=== PATIENT | male | born 1935 | race Caucasian/White ===

== ENCOUNTER → 2016-05-27 | Outpatient (CLI) | payer MEDICARE, BC ==
[~2016-05-27] MED LIST: ASPIRIN E.C. 8181 MG PO; AVAPRO300 M1 PO; GLUCOPHAGE500 MG/TAB PO; OMEGA 31000 MG PO; PRIL40 PO; ULTRAM 50MG TAB50 MG PO; ZOCOR 40MG40 MG PO
== END ==
LOC: SUN.DIA 14:30
DX: E11.65 Type 2 diabetes mellitus with hyperglycemia (principal); E66.9 Obesity, unspecified; Z68.39 Body mass index [BMI] 39.0-39.9, adult; Z79.84 Long term (current) use of oral hypoglycemic drugs; Z71.3 Dietary counseling and surveillance; E78.5 Hyperlipidemia, unspecified; I10 Essential (primary) hypertension; Z87.891 Personal history of nicotine dependence

== ENCOUNTER → 2016-11-11 | Outpatient (CLI) | payer MEDICARE, BC | LOC: SUN.DIA 14:23 | DX: E11.9 Type 2 diabetes mellitus without complications (principal); E78.5 Hyperlipidemia, unspecified; I10 Essential (primary) hypertension; E66.9 Obesity, unspecified; Z71.3 Dietary counseling and surveillance; Z87.891 Personal history of nicotine dependence | CPT/HCPCS: G0108 ==

== ENCOUNTER → 2017-06-12 | Outpatient (CLI) | payer MEDICARE, BC | LOC: SUN.DIA 05-26 15:51 | DX: E11.9 Type 2 diabetes mellitus without complications (principal); E78.5 Hyperlipidemia, unspecified; I10 Essential (primary) hypertension; E66.9 Obesity, unspecified; Z68.41 Body mass index [BMI] 40.0-44.9, adult; Z71.3 Dietary counseling and surveillance; Z87.891 Personal history of nicotine dependence | CPT/HCPCS: G0108 ==

== ENCOUNTER → 2017-11-10 | Outpatient (CLI) | payer MEDICARE, BC | LOC: SUN.DIA 09:35 | DX: E11.9 Type 2 diabetes mellitus without complications (principal); E78.5 Hyperlipidemia, unspecified; I10 Essential (primary) hypertension; E66.9 Obesity, unspecified; Z68.41 Body mass index [BMI] 40.0-44.9, adult; Z71.3 Dietary counseling and surveillance; Z87.891 Personal history of nicotine dependence | CPT/HCPCS: G0108 ==

== ENCOUNTER → 2018-05-18 | Outpatient (CLI) | payer MEDICARE, BC | LOC: SUN.DIA 10:37 | DX: E11.9 Type 2 diabetes mellitus without complications (principal); E78.5 Hyperlipidemia, unspecified; I10 Essential (primary) hypertension; E66.9 Obesity, unspecified; F17.210 Nicotine dependence, cigarettes, uncomplicated | CPT/HCPCS: G0108 ==

== ENCOUNTER → 2018-11-16 | Outpatient (CLI) | payer MEDICARE, BC | LOC: DIA.ED 13:39 | DX: E11.9 Type 2 diabetes mellitus without complications (principal); E78.5 Hyperlipidemia, unspecified; I10 Essential (primary) hypertension; E66.9 Obesity, unspecified | CPT/HCPCS: G0108 ==

== ENCOUNTER → 2019-06-02 | Outpatient (CLI) | payer MEDICARE, BC | LOC: DIA.ED 14:27 | DX: E11.9 Type 2 diabetes mellitus without complications (principal); Z79.84 Long term (current) use of oral hypoglycemic drugs; E66.8 Other obesity; E78.5 Hyperlipidemia, unspecified; I10 Essential (primary) hypertension | CPT/HCPCS: G0270 ==

== ENCOUNTER → 2019-10-27 | Outpatient (CLI) | payer MEDICARE, BC | LOC: DIA.ED 13:55 | DX: E11.9 Type 2 diabetes mellitus without complications (principal); Z79.84 Long term (current) use of oral hypoglycemic drugs; E66.8 Other obesity; E78.5 Hyperlipidemia, unspecified; I10 Essential (primary) hypertension | CPT/HCPCS: G0270 ==

== ENCOUNTER → 2019-12-16 | Outpatient (CLI) | payer MEDICARE, BC ==
[~2019-12-16] VITALS: Ht 177.8 cm; Wt 125.0 kg
[~2019-12-16] MED LIST changes: -OMEGA 31000 MG PO; +OMEGA-3 FISH1000 MG PO; +ROBAXIN 50500 MG/TAB PO
[2019-12-16 09:52] VITALS: BP 151/79; PULSE 73
[2019-12-16 10:50] VITALS: BP 140/72; PULSE 70
== END ==
LOC: COL.RAD 09:30
DX: M51.36 Other intervertebral disc degeneration, lumbar region (principal); M48.061 Spinal stenosis, lumbar region without neurogenic claudication; Z98.1 Arthrodesis status
CPT/HCPCS: J3301

== ENCOUNTER → 2020-10-30 | Outpatient (CLI) | payer MEDICARE, BC | LOC: DIA.ED 10:21 | DX: E11.9 Type 2 diabetes mellitus without complications (principal); Z79.84 Long term (current) use of oral hypoglycemic drugs; I10 Essential (primary) hypertension; E78.5 Hyperlipidemia, unspecified | CPT/HCPCS: G0270 ==

== ENCOUNTER → 2021-04-23 | Outpatient (CLI) | payer MEDICARE, BC | LOC: DIA.ED 09:51 | DX: E11.65 Type 2 diabetes mellitus with hyperglycemia (principal); Z79.84 Long term (current) use of oral hypoglycemic drugs; E78.5 Hyperlipidemia, unspecified; I10 Essential (primary) hypertension | CPT/HCPCS: G0270 ==

== ENCOUNTER → 2021-10-11 | Outpatient (CLI) | payer MEDICARE, BC | LOC: DIA.ED 09:31 | DX: E11.65 Type 2 diabetes mellitus with hyperglycemia (principal); Z79.84 Long term (current) use of oral hypoglycemic drugs; E87.5 Hyperkalemia; I10 Essential (primary) hypertension | CPT/HCPCS: G0270 ==